=== PATIENT | female | born 1935 | race Caucasian/White ===

== ENCOUNTER → 2017-05-17 | Outpatient (CLI) | payer MEDICARE, OTHER ==
[2015-01-09 11:25] VITALS: BP 106/60
[~2017-05-17] MED LIST: GOOD SENSE ASPI81 M1 PO; LINZESS145 MCG PO; NITROGLYCERIN0.4 M1 SL; NITROSTAT0.4 MG SL; NORCO 325 MG-51 TAB PO; OXYBUTYNIN5 MG PO; VALIUM2 MG PO
[2017-05-17 15:27] LABS: ALBUMIN 3.8 g/dL (3.5-5.0); BUN/CREATININE RATIO 20.3 (6.0-26.0); CALCIUM 9.2 mg/dL (8.4-10.2); POTASSIUM 3.8 mmol/L (3.6-5.0); TOTAL BILIRUBIN 0.5 mg/dL (0.2-1.3); TOTAL PROTEIN 6.6 g/dL (6.3-8.2)
[2017-05-17 16:08] LABS: EOS # 0.2 (0.04-0.40); EOS % 3.7 % (1.0-5.0); HEMATOCRIT 44.1 % (37.0-47.0); HEMOGLOBIN 14.4 g/dL (12.5-16.0); LYMPH# 1.1 (1.50-4.00); MEAN CELL VOLUME 84 fl (78-100); MEAN CORPUSCULAR HEMOGLOBIN 28 pg (27-31); MEAN CORPUSCULAR HGB CONC 33 g/dL (33-37); MEAN PLATELET VOLUME 10.9 fl (7.4-10.4); MONO # 0.4 (0.20-0.80); NEU # 2.4 (1.40-6.50); PLATELET COUNT 241 K/mm3 (130-400); RED BLOOD COUNT 5.23 M/mm3 (4.10-5.30); WHITE BLOOD COUNT 4.1 K/mm3 (4.8-10.8)
[2017-05-17 17:17] LABS: ERYTHROCYTE SEDIMENTATION RATE 2 mm/hr (0-30)
[2017-05-17 22:19] LABS: C-REACTIVE PROTEIN XXX
[2017-05-19 02:38] LABS: ANA SCREEN with REFLEX Negative (Negative)
== END ==
LOC: LAB 14:16
PROVIDERS: Nurse Practitioner Family
DX: M79.606 Pain in leg, unspecified (principal); M79.1 Myalgia; R41.3 Other amnesia; L82.1 Other seborrheic keratosis; F41.1 Generalized anxiety disorder; F51.01 Primary insomnia

== ENCOUNTER → 2017-11-12 | Outpatient (CLI) | payer MEDICARE, OTHER ==
[~2017-11-12] VITALS: Ht 167.6 cm; Wt 61.4 kg
[~2017-11-12] MED LIST changes: +BACTRIM DS TAB1 EACH PO
[2017-11-12 11:00] VITALS: BP 136/60
== END ==
LOC: AMSURD 10:50
DX: R07.9 Chest pain, unspecified (principal)

== ENCOUNTER 2017-11-14 09:12 | Emergency (ER) | payer MEDICARE, OTHER ==
[~2017-11-14] VITALS: Ht 167.6 cm; Wt 55.5 kg
[~2017-11-14 09:12] MED LIST changes: -BACTRIM DS TAB1 EACH PO
[2017-11-14 09:46] LABS: HEMATOCRIT 42.5 % (37.0-47.0); HEMOGLOBIN 14.4 g/dL (12.5-16.0); MEAN CELL VOLUME 81 fl (78-100); MEAN CORPUSCULAR HEMOGLOBIN 27 pg (27-31); MEAN CORPUSCULAR HGB CONC 34 g/dL (33-37); MEAN PLATELET VOLUME 10.8 fl (7.4-10.4); PLATELET COUNT 118 K/mm3 (130-400); RED BLOOD COUNT 5.28 M/mm3 (4.10-5.30); RED CELL DISTRIBUTION WIDTH 14.9 % (11.5-14.5); WHITE BLOOD COUNT 2.3 K/mm3 (4.8-10.8)
[2017-11-14 10:02] LABS: ALBUMIN 3.5 g/dL (3.5-5.0); BUN/CREATININE RATIO 17.1 (6.0-26.0); CALCIUM 8.5 mg/dL (8.4-10.2); POTASSIUM 3.5 mmol/L (3.6-5.0); TOTAL BILIRUBIN 1.1 mg/dL (0.2-1.3); TOTAL PROTEIN 6.4 g/dL (6.3-8.2)
[2017-11-14 10:03] LABS: D-DIMER 2.79 mg/L FEU (0.15-0.50)
[2017-11-14 10:15] LABS: CKMB ISOENZYME 2.2 ng/mL (0.6-3.5)
[2017-11-14 10:20] LABS: TROPONIN-I < 0.03 ng/mL (0.00-0.06)
[2017-11-14 10:33] LABS: BAND 10 % (0-10); LYMPHOCYTE 17 % (20-51); MONOCYTE 14 % (3-10); NEUTROPHILS 57 % (42-75)
[2017-11-14 10:34] LABS: PH-URINE 5.5 (5.0 - 8.0); URINE APPEARANCE CLOUDY; URINE BILIRUBIN NEGATIVE (NEGATIVE); URINE BLOOD TRACE (NEGATIVE); URINE COLOR YELLOW; URINE GLUCOSE NEGATIVE (NEGATIVE); URINE KETONE 1+ (NEGATIVE); URINE LEUKOCYTE ESTERASE 1+ (NEGATIVE); URINE NITRATE NEGATIVE (NEGATIVE); URINE PROTEIN(semi-quant) 1+ mg/dL (NEGATIVE); URINE UROBILINOGEN NORMAL (NORMAL)
[2017-11-14 10:35] LABS: URINE MUCUS PRESENT (NOT PRESENT)
[2017-11-14] MEDS ORDERED: BACTRIM DS TAB1 EACH PO (12:16)
[2017-11-14 12:30] VITALS: BP 142/64
== END 2017-11-14 12:26 | disposition home or self-care (01) ==
LOC: ED 09:12
PROVIDERS: Nurse Practitioner Primary Care
DX: E86.0 Dehydration (principal); A08.4 Viral intestinal infection, unspecified; N39.0 Urinary tract infection, site not specified; Z95.5 Presence of coronary angioplasty implant and graft; F17.200 Nicotine dependence, unspecified, uncomplicated
CPT/HCPCS: J7030; Q9967

== ENCOUNTER 2017-11-16 16:58 | Observation (INO) | payer MEDICARE, OTHER ==
[~2017-11-16] VITALS: Ht 167.6 cm; Wt 56.0 kg
[~2017-11-16 16:58] MED LIST changes: +BACTRIM DS TAB1 EACH PO
[2017-11-16] MEDS ORDERED: CELECOXIB100 M1 PO (17:12)
[2017-11-16 18:05] LABS: BUN/CREATININE RATIO 14.5 (6.0-26.0); CALCIUM 7.7 mg/dL (8.4-10.2); POTASSIUM 3.3 mmol/L (3.6-5.0); TOTAL BILIRUBIN 0.6 mg/dL (0.2-1.3); TOTAL PROTEIN 5.6 g/dL (6.3-8.2)
[2017-11-16 18:07] LABS: EOS % 0.3 % (1.0-5.0); HEMATOCRIT 35.9 % (37.0-47.0); HEMOGLOBIN 12.3 g/dL (12.5-16.0); MEAN CELL VOLUME 80 fl (78-100); MEAN CORPUSCULAR HEMOGLOBIN 27 pg (27-31); MEAN CORPUSCULAR HGB CONC 34 g/dL (33-37); MEAN PLATELET VOLUME 11.3 fl (7.4-10.4); MONO # 0.3 (0.20-0.80); NEU # 2.2 (1.40-6.50); PLATELET COUNT 104 K/mm3 (130-400); RED BLOOD COUNT 4.51 M/mm3 (4.10-5.30); WHITE BLOOD COUNT 3.2 K/mm3 (4.8-10.8)
[2017-11-16 18:08] LABS: CKMB ISOENZYME 0.9 ng/mL (0.6-3.5)
[2017-11-16 18:14] LABS: TROPONIN-I < 0.03 ng/mL (0.00-0.06)
[2017-11-16 18:19] LABS: LYMPH# 0.6 (1.50-4.00)
[2017-11-16 19:45] LABS: PH-URINE 5.5 (5.0 - 8.0); URINE APPEARANCE CLEAR; URINE BILIRUBIN NEGATIVE (NEGATIVE); URINE COLOR YELLOW; URINE GLUCOSE NEGATIVE (NEGATIVE); URINE KETONE 1+ (NEGATIVE); URINE PROTEIN(semi-quant) TRACE mg/dL (NEGATIVE); URINE UROBILINOGEN NORMAL (NORMAL)
[2017-11-16 19:46] LABS: URINE BLOOD TRACE (NEGATIVE); URINE LEUKOCYTE ESTERASE NEGATIVE (NEGATIVE); URINE NITRATE NEGATIVE (NEGATIVE)
--- NOTE | 2017-11-16 19:48 | NUR ---
Admitted from ER to room 204 for observation. Pt ambulated to room, gait steady and a/o x 3. Oriented to room by Sai LAUREN. Bed alarm set and call light with in reach of pt.
--- NOTE | 2017-11-16 20:00 | NUR ---
Pt awake, a/o x 3, resting in bed and visiting with on mobile phone. Denies having any needs or concerns at this time.
[2017-11-16 20:06] VITALS: BP 100/35
[2017-11-16 20:46] VITALS: BP 100/35
[2017-11-16 23:00] VITALS: BP 107/42
--- NOTE | 2017-11-16 23:00 | NUR ---
2049 Pt resting in bed, eyes closed and even respirations. Opens eyes when spoken too. Oriented pt to room and call light. Informed pt that bed and chair alarms will be set when she is in them. Pt agreed. Instructed to use call light when needing to get up out of bed, pt agreed. 2099 Int started in right wrist, 20 gauge IV catheter. 2111 IV fluids of NS started via pump to infuse at 100mls/hr. Pt continues to deny nausea. Denies having any diarrhea since admission. Denies SOB, chest pain. States she has over all body aches. Ambulated to the bathroom with one stand by assist. Gait steady. Reminded pt to use call light when needing to get up out of bed. Pt agreed. [id number] Pt pleasant and willing to talk. Pt informed me that it has been stressful at home for her and herself. They are in the process of adopting their great grandchildren. Their daughter when she was 42 of breast cancer and that her grand daughter has had a long history of drug abuse and history of being turned into child protective services for her two great grand children. The children have been living with them since last December and now her and herself are in the process of adopting their great grand children. She states she has been under a great deal of stress, loosing weight from lack of time to eat. Difficulty sleeping going to bed late and waking around 0300 up until approx 2 weeks ago when she started feeling well. Then she started to go to bed early "like around 7 O'clock" and sleeping for 8 hours or more. I spoke with pt for approx a hour. Visiting from current family issues to past hx. 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 She stated her first was in the [place] and the family did a lot of travel abroad travel and living out side the [place] during his time in the . Living in [place] to [place]. They had a daughter and son together. Her first . She meant her current when she was 42 and he was 28. He is 12 years younger than her. She did speak briefly of knee issues, he is needing surgery but has been holding off on it. She denied having any financial concerns or needs. She denied having any safety concern at home with her or great grand children. Denies having any safety concerns regarding her grand daughter, who now lives in [place]. Denies having any current home health care needs. Pt stated she appreciated being able to talk with me and it was helpful just to be able to talk about her current family situation. 2300 Currently resting in bed, bed alarm set. Call light with in reach of pt. IV infusing at 100mls/hr.
--- NOTE | 2017-11-17 01:20 | NUR ---
Bed alarm sounded, pt found ambulated to bathroom. Pt reminded to use call light. Pt stated she just woke up and had to pee.
[2017-11-17] MEDS ORDERED: TUMS REGULAR S500 MG PO (01:44)
[2017-11-17 03:15] VITALS: BP 98/53
--- NOTE | 2017-11-17 03:20 | NUR ---
Pt given tylenol for temp for oral temp of 102.8. Pt denied nausea. Has denied having any dirrhea.
[2017-11-17 06:39] VITALS: BP 87/41
[2017-11-17 07:07] LABS: HEMATOCRIT 36.2 % (37.0-47.0); HEMOGLOBIN 12.3 g/dL (12.5-16.0); MEAN CELL VOLUME 80 fl (78-100); MEAN CORPUSCULAR HEMOGLOBIN 27 pg (27-31); MEAN CORPUSCULAR HGB CONC 34 g/dL (33-37); MEAN PLATELET VOLUME 11.4 fl (7.4-10.4); PLATELET COUNT 98 K/mm3 (130-400); RED BLOOD COUNT 4.51 M/mm3 (4.10-5.30); WHITE BLOOD COUNT 3.1 K/mm3 (4.8-10.8)
[2017-11-17 07:19] LABS: BUN/CREATININE RATIO 13.3 (6.0-26.0); CALCIUM 7.6 mg/dL (8.4-10.2); POTASSIUM 3.4 mmol/L (3.6-5.0)
--- NOTE | 2017-11-17 07:28 | NUR ---
Shift report given to Lena Herr RN
--- NOTE | 2017-11-17 08:05 | NUR ---
Increased fluid to infuse a 500ml bolus per VO Sergio Barlow APRN.
--- NOTE | 2017-11-17 08:47 | NUR ---
Pt denies c/o chest pain or SOB. States that those symptoms have subsided from previous reports when seen in the clinic and ER. Pt reports having chills this AM and had soaked gown with sweat prior to getting up this AM. Rechecked oral temp, WNL. Explained to pt add'l lab draws and starting IV abx. Pt acknowledges understanding and is agreeable to this.
--- NOTE | 2017-11-17 09:08 | NUR ---
EKG complete, RSR noted. Notified provider.
[2017-11-17 09:41] LABS: BAND 13 % (0-10); LYMPHOCYTE 14 % (20-51); MONOCYTE 5 % (3-10); NEUTROPHILS 68 % (42-75)
[2017-11-17 09:42] LABS: OVALOCYTES 1+
[2017-11-17 10:31] VITALS: BP 89/50
--- NOTE | 2017-11-17 11:07 | NUR ---
Pt has been transferred to acute care.
[2017-11-17 11:27] VITALS: BP 116/66
[2017-11-18 02:30] LABS: C-REACTIVE PROTEIN XXX
[2017-11-18 10:18] LABS: TICK - ROCKY MT SPOT FEVER AB <1:16 (<1:16)
== END 2017-11-17 11:07 | disposition other institution (70) ==
LOC: ED 16:58 → MED/SURG 19:48
PROVIDERS: Nurse Practitioner Family; ADMIT Physician Assistant
DX: D70.9 Neutropenia, unspecified (principal); R50.81 Fever presenting with conditions classified elsewhere; E86.0 Dehydration; E87.1 Hypo-osmolality and hyponatremia; E87.6 Hypokalemia; R53.81 Other malaise; K52.9 Noninfective gastroenteritis and colitis, unspecified; R53.83 Other fatigue; Z20.7 Contact with and (suspected) exposure to pediculosis, acariasis and other infestations; R53.1 Weakness; R59.0 Localized enlarged lymph nodes; D61.818 Other pancytopenia; R82.4 Acetonuria; F41.9 Anxiety disorder, unspecified; F32.9 Major depressive disorder, single episode, unspecified; Z87.891 Personal history of nicotine dependence; Z79.899 Other long term (current) drug therapy; R91.8 Other nonspecific abnormal finding of lung field
CPT/HCPCS: G0378; J0696; J3480; J7030; J7050

== ENCOUNTER 2017-11-17 11:07 | Inpatient (IN) | payer MEDICARE, OTHER ==
[~2017-11-17] VITALS: Ht 167.6 cm; Wt 56.1 kg
[2017-11-17 11:07] VITALS: BP 116/66
[~2017-11-17 11:07] MED LIST changes: +CELECOXIB100 M1 PO; +TUMS REGULAR S500 MG PO
[2017-11-17 12:24] VITALS: BP 116/66
[2017-11-17 15:15] VITALS: BP 123/63
[2017-11-17 18:17] VITALS: BP 125/55
[2017-11-17 23:00] VITALS: BP 100/53
[2017-11-18] VITALS (7 sets, daily range): BP systolic 102–152; BP diastolic 47–75
[2017-11-18 06:04] LABS: HEMATOCRIT 35.7 % (37.0-47.0); HEMOGLOBIN 11.9 g/dL (12.5-16.0); MEAN CELL VOLUME 81 fl (78-100); MEAN CORPUSCULAR HEMOGLOBIN 27 pg (27-31); MEAN CORPUSCULAR HGB CONC 33 g/dL (33-37); MEAN PLATELET VOLUME 10.7 fl (7.4-10.4); PLATELET COUNT 99 K/mm3 (130-400); RED BLOOD COUNT 4.39 M/mm3 (4.10-5.30); RED CELL DISTRIBUTION WIDTH 15.5 % (11.5-14.5); WHITE BLOOD COUNT 3.8 K/mm3 (4.8-10.8)
[2017-11-18 06:45] LABS: BUN/CREATININE RATIO 10.2 (6.0-26.0); CALCIUM 7.3 mg/dL (8.4-10.2); POTASSIUM 3.8 mmol/L (3.6-5.0)
[2017-11-18 07:30] LABS: BAND 7 % (0-10); LYMPHOCYTE 22 % (20-51); MONOCYTE 9 % (3-10); NEUTROPHILS 62 % (42-75); OVALOCYTES 1+
[2017-11-19 02:52] VITALS: BP 135/63
[2017-11-19 06:21] VITALS: BP 156/67
[2017-11-19 07:13] LABS: HEMATOCRIT 38.9 % (37.0-47.0); HEMOGLOBIN 13.2 g/dL (12.5-16.0); MEAN CELL VOLUME 81 fl (78-100); MEAN CORPUSCULAR HEMOGLOBIN 28 pg (27-31); MEAN CORPUSCULAR HGB CONC 34 g/dL (33-37); MEAN PLATELET VOLUME 11.4 fl (7.4-10.4); PLATELET COUNT 141 K/mm3 (130-400); RED BLOOD COUNT 4.79 M/mm3 (4.10-5.30); RED CELL DISTRIBUTION WIDTH 16.1 % (11.5-14.5); WHITE BLOOD COUNT 6.7 K/mm3 (4.8-10.8)
[2017-11-19 07:24] LABS: BUN/CREATININE RATIO 8.8 (6.0-26.0); CALCIUM 7.7 mg/dL (8.4-10.2); POTASSIUM 3.8 mmol/L (3.6-5.0)
[2017-11-19 08:44] LABS: NEUTROPHILS 37 % (42-75)
[2017-11-19 08:45] LABS: LYMPHOCYTE 56 % (20-51); MONOCYTE 6 % (3-10)
[2017-11-19 11:07] VITALS: BP 114/55
[2017-11-19 15:08] VITALS: BP 137/68
[2017-11-19 18:08] VITALS: BP 124/54
[2017-11-19 23:35] VITALS: BP 149/73
[2017-11-20 03:12] VITALS: BP 152/65
[2017-11-20 06:41] VITALS: BP 119/58
[2017-11-20 11:09] VITALS: BP 114/63
[2017-11-20 15:22] VITALS: BP 127/65
[2017-11-20 18:42] VITALS: BP 146/60
[2017-11-20 22:56] VITALS: BP 169/79
[2017-11-21 03:12] VITALS: BP 157/74
[2017-11-21 06:19] VITALS: BP 159/70
[2017-11-21] MEDS ORDERED: CEFDINIR300 MG PO (09:33)
[2017-11-21] MEDS ORDERED: DOXYCYCLINE MO100 M3 PO (09:33)
[2017-11-21] MEDS ORDERED: Patient's Own Medica PO (09:33)
[2017-11-21] MEDS ORDERED: VALIUM 2MG T2 MG/TAB PO (09:33)
== END 2017-11-21 10:47 | disposition home or self-care (01) | DRG 809 ==
LOC: MED/SURG 11:07
PROVIDERS: Nurse Practitioner Family; ADMIT Physician Assistant
DX: D61.818 Other pancytopenia (principal); A93.8 Other specified arthropod-borne viral fevers; E87.1 Hypo-osmolality and hyponatremia; R50.81 Fever presenting with conditions classified elsewhere; E87.6 Hypokalemia
CPT/HCPCS: J0696; J3480; J7050

== ENCOUNTER → 2017-11-28 | Outpatient (CLI) | payer MEDICARE, OTHER ==
[2017-11-21 06:19] VITALS: BP 159/70
[~2017-11-28] MED LIST changes: +CEFDINIR300 MG PO; +DOXYCYCLINE MO100 M3 PO; +Patient's Own Medica PO; +VALIUM 2MG T2 MG/TAB PO
[2017-11-28 09:48] LABS: HEMATOCRIT 43.8 % (37.0-47.0); HEMOGLOBIN 14.1 g/dL (12.5-16.0); MEAN PLATELET VOLUME 9.2 fl (7.4-10.4); RED BLOOD COUNT 5.23 M/mm3 (4.10-5.30); WHITE BLOOD COUNT 8.3 K/mm3 (4.8-10.8)
[2017-11-28 10:06] LABS: BUN/CREATININE RATIO 15.3 (6.0-26.0); CALCIUM 8.9 mg/dL (8.4-10.2); POTASSIUM 3.9 mmol/L (3.6-5.0)
== END ==
LOC: LAB 09:28
PROVIDERS: Nurse Practitioner Family
DX: D70.9 Neutropenia, unspecified (principal); E87.6 Hypokalemia; E87.1 Hypo-osmolality and hyponatremia

== ENCOUNTER → 2018-01-17 | Outpatient (CLI) | payer MEDICARE, OTHER ==
[2018-01-17 11:07] LABS: BASO # 0.1 (0.02-0.10); EOS # 0.1 (0.04-0.40); HEMATOCRIT 45.6 % (37.0-47.0); HEMOGLOBIN 14.9 g/dL (12.5-16.0); LYMPH# 2.2 (1.50-4.00); MEAN CELL VOLUME 84 fl (78-100); MEAN CORPUSCULAR HEMOGLOBIN 28 pg (27-31); MEAN CORPUSCULAR HGB CONC 33 g/dL (33-37); MEAN PLATELET VOLUME 10.1 fl (7.4-10.4); MONO # 0.5 (0.20-0.80); NEU # 3.3 (1.40-6.50); PLATELET COUNT 278 K/mm3 (130-400); RED CELL DISTRIBUTION WIDTH 15.1 % (11.5-14.5); WHITE BLOOD COUNT 6.1 K/mm3 (4.8-10.8)
[2018-01-17 11:15] LABS: ALBUMIN 4.3 g/dL (3.5-5.0); CALCIUM 9.5 mg/dL (8.4-10.2); POTASSIUM 3.7 mmol/L (3.6-5.0); TOTAL PROTEIN 7.2 g/dL (6.3-8.2)
[2018-01-17 11:31] LABS: URINE APPEARANCE CLEAR; URINE BILIRUBIN NEGATIVE (NEGATIVE); URINE BLOOD NEGATIVE (NEGATIVE); URINE COLOR YELLOW; URINE GLUCOSE NEGATIVE (NEGATIVE); URINE KETONE NEGATIVE (NEGATIVE); URINE LEUKOCYTE ESTERASE NEGATIVE (NEGATIVE); URINE NITRATE NEGATIVE (NEGATIVE); URINE PROTEIN(semi-quant) TRACE mg/dL (NEGATIVE); URINE UROBILINOGEN NORMAL (NORMAL); URINE WBC 0-1 /hpf (0-3)
[2018-01-22 10:53] LABS: LYME DISEASE PCR BLOOD AMS
== END ==
LOC: LAB 10:35
PROVIDERS: Family Medicine
DX: R50.9 Fever, unspecified (principal); R10.9 Unspecified abdominal pain; R73.9 Hyperglycemia, unspecified; R53.83 Other fatigue; E55.9 Vitamin D deficiency, unspecified; R07.9 Chest pain, unspecified

== ENCOUNTER → 2018-01-19 | Outpatient (CLI) | payer MEDICARE, OTHER | LOC: RAD 16:45 → VAS 16:45 | DX: I35.1 Nonrheumatic aortic (valve) insufficiency (principal); I51.89 Other ill-defined heart diseases; R50.9 Fever, unspecified ==

== ENCOUNTER → 2018-08-16 | Outpatient (CLI) | payer MEDICARE, OTHER ==
[2018-08-16 10:00] LABS: EOS # 0.1 (0.04-0.40); EOS % 1.8 % (1.0-5.0); HEMOGLOBIN 14.8 g/dL (12.5-16.0); LYMPH# 1.6 (1.50-4.00); MEAN CELL VOLUME 85 fl (78-100); MEAN CORPUSCULAR HEMOGLOBIN 27 pg (27-31); MEAN CORPUSCULAR HGB CONC 32 g/dL (33-37); MEAN PLATELET VOLUME 10.1 fl (7.4-10.4); MONO # 0.4 (0.20-0.80); NEU # 3.9 (1.40-6.50); PLATELET COUNT 255 K/mm3 (130-400); RED BLOOD COUNT 5.43 M/mm3 (4.10-5.30); RED CELL DISTRIBUTION WIDTH 14.5 % (11.5-14.5)
[2018-08-16 10:34] LABS: ALBUMIN 4.4 g/dL (3.5-5.0); CALCIUM 9.6 mg/dL (8.4-10.2); POTASSIUM 4.1 mmol/L (3.6-5.0); TOTAL BILIRUBIN 0.7 mg/dL (0.2-1.3); TOTAL PROTEIN 7.4 g/dL (6.3-8.2)
[2018-08-16 11:14] LABS: ERYTHROCYTE SEDIMENTATION RATE 2 mm/hr (0-30)
[2018-08-17 11:23] LABS: C-REACTIVE PROTEIN XXX
[2018-08-18 01:09] LABS: ANA SCREEN with REFLEX Positive (Negative)
== END ==
LOC: LAB 09:37
PROVIDERS: Family Medicine
DX: M19.90 Unspecified osteoarthritis, unspecified site (principal); I25.10 Atherosclerotic heart disease of native coronary artery without angina pectoris; D89.89 Other specified disorders involving the immune mechanism, not elsewhere classified

== ENCOUNTER 2018-08-24 11:17 | Emergency (ER) | payer MEDICARE, OTHER ==
[2018-08-24 11:24] VITALS: BP 166/86
[2018-08-24] MEDS ORDERED: MELOXICAM15 MG PO (11:36)
[2018-08-24] MEDS ORDERED: DITROPAN 5MG TAB5 MG PO (11:36)
[2018-08-24 12:23] LABS: EOS # 0.1 (0.04-0.40); EOS % 2.6 % (1.0-5.0); HEMATOCRIT 45.5 % (37.0-47.0); HEMOGLOBIN 14.7 g/dL (12.5-16.0); LYMPH# 1.6 (1.50-4.00); MEAN CELL VOLUME 85 fl (78-100); MEAN CORPUSCULAR HEMOGLOBIN 27 pg (27-31); MEAN CORPUSCULAR HGB CONC 32 g/dL (33-37); MEAN PLATELET VOLUME 10.1 fl (7.4-10.4); MONO # 0.4 (0.20-0.80); NEU # 3.2 (1.40-6.50); PLATELET COUNT 235 K/mm3 (130-400); RED BLOOD COUNT 5.37 M/mm3 (4.10-5.30); RED CELL DISTRIBUTION WIDTH 14.2 % (11.5-14.5); WHITE BLOOD COUNT 5.4 K/mm3 (4.8-10.8)
[2018-08-24 12:44] LABS: ALBUMIN 4.5 g/dL (3.5-5.0); CALCIUM 9.6 mg/dL (8.4-10.2); POTASSIUM 3.7 mmol/L (3.6-5.0); TOTAL BILIRUBIN 0.8 mg/dL (0.2-1.3); TOTAL PROTEIN 7.5 g/dL (6.3-8.2)
[2018-08-24 12:46] LABS: PH-URINE 7.5 (5.0 - 8.0); URINE APPEARANCE CLEAR; URINE BILIRUBIN NEGATIVE (NEGATIVE); URINE BLOOD NEGATIVE (NEGATIVE); URINE COLOR YELLOW; URINE GLUCOSE NEGATIVE (NEGATIVE); URINE KETONE NEGATIVE (NEGATIVE); URINE LEUKOCYTE ESTERASE NEGATIVE (NEGATIVE); URINE NITRATE NEGATIVE (NEGATIVE); URINE PROTEIN(semi-quant) NEGATIVE (NEGATIVE); URINE UROBILINOGEN NORMAL (NORMAL); URINE WBC 0-1 /hpf (0-3)
== END 2018-08-24 14:02 | disposition home or self-care (01) ==
LOC: ED 11:17
PROVIDERS: Nurse Practitioner Primary Care
DX: R41.0 Disorientation, unspecified (principal); T39.395A Adverse effect of other nonsteroidal anti-inflammatory drugs [NSAID], initial encounter; R53.1 Weakness; K21.9 Gastro-esophageal reflux disease without esophagitis; Z90.49 Acquired absence of other specified parts of digestive tract; Z98.890 Other specified postprocedural states

== ENCOUNTER → 2019-03-29 | Outpatient (CLI) | payer MEDICARE, OTHER ==
[2019-01-24 06:15] VITALS: BP 167/70
[~2019-03-29] MED LIST changes: +ASPIRIN ADULT L81 M3 PO; +ATORVASTATIN CA20 MG PO; +BENADRYL PO; +DITROPAN XL 5MG5 M1 PO; +FLONASE ALLERG9.9 ML NS; +GOOD NEIGH1200 MG/15 PO; +MELOXICAM15 MG PO; +NITROSTAT0.4 M1 SL; +PLAQUENIL 200M200 MG PO; +PREDNISONE10 MG PO; +TRIAMCINOLONE AC0.13 TP
== END ==
LOC: LAB 12:38
DX: R51 Headache (principal)

== ENCOUNTER 2019-05-01 08:22 | Emergency (ER) | payer MEDICARE, OTHER ==
[~2019-05-01] VITALS: Wt 59.8 kg
[2019-05-01 09:16] LABS: HEMATOCRIT 44.8 % (37.0-47.0); HEMOGLOBIN 14.6 g/dL (12.5-16.0); MEAN PLATELET VOLUME 10.7 fl (7.4-10.4); POTASSIUM 3.5 mmol/L (3.5-5.1); RED BLOOD COUNT 5.2 M/mm3 (4.10-5.30); SODIUM 144 mmol/L (136-145)
[2019-05-01 09:17] LABS: CALCIUM 9.6 mg/dL (8.3-10.5)
[2019-05-01 09:18] LABS: GLUCOSE 114 mg/dL (65-105); TOTAL PROTEIN 6.5 g/dL (6.2-8.1)
[2019-05-01 09:19] LABS: CARBON DIOXIDE 25 mmol/L (23-31)
[2019-05-01 09:20] LABS: TOTAL BILIRUBIN 0.7 mg/dL (0.2-1.2)
[2019-05-01 09:24] LABS: AST-SGOT 25 U/L (5-34)
[2019-05-01 09:25] LABS: ALT/SGPT 30 U/L (0-55)
[2019-05-01 09:33] LABS: TROPONIN-I < 0.03 ng/mL (<0.030)
[2019-05-01 11:28] LABS: URINE APPEARANCE CLEAR; URINE COLOR YELLOW
[2019-05-01 11:29] LABS: URINE BILIRUBIN NEGATIVE (NEGATIVE); URINE BLOOD NEGATIVE (NEGATIVE); URINE GLUCOSE NEGATIVE (NEGATIVE); URINE KETONE NEGATIVE (NEGATIVE); URINE LEUKOCYTE ESTERASE NEGATIVE (NEGATIVE); URINE NITRATE NEGATIVE (NEGATIVE); URINE PROTEIN(semi-quant) TRACE mg/dL (NEGATIVE); URINE UROBILINOGEN NORMAL (NORMAL); URINE WBC 0-1 /hpf (0-3)
[2019-05-01 11:32] VITALS: BP 144/84
[2019-05-01] MEDS ORDERED: PLAQUENIL 200M200 MG PO (14:11)
[2019-05-01] MEDS ORDERED: LIPITOR20 M2 PO (14:11)
== END 2019-05-01 11:11 | disposition other institution (70) ==
LOC: ED 08:22
PROVIDERS: Nurse Practitioner Family
DX: K56.609 Unspecified intestinal obstruction, unspecified as to partial versus complete obstruction (principal)
CPT/HCPCS: J2270; J2405; J7030; Q9967

== ENCOUNTER 2019-05-01 11:11 | Inpatient (IN) | payer MEDICARE, OTHER ==
[~2019-05-01] VITALS: Ht 165.1 cm; Wt 58.2 kg
[2019-05-01 11:20] VITALS: BP 144/84
[2019-05-01 12:05] VITALS: BP 144/84
[2019-05-01] MEDS ORDERED: LIPITOR20 M2 PO (14:11)
[2019-05-01] MEDS ORDERED: PLAQUENIL 200M200 MG PO (14:11)
[2019-05-01 15:20] VITALS: BP 162/68
[2019-05-01 16:49] VITALS: BP 162/68
[2019-05-01 17:16] VITALS: BP 165/80
[2019-05-01 22:00] VITALS: BP 165/71
[2019-05-02 02:56] VITALS: BP 156/75
[2019-05-02 06:22] VITALS: BP 178/69
[2019-05-02 08:34] LABS: EOS # 0.2 (0.04-0.40); EOS % 3.2 % (1.0-5.0); HEMATOCRIT 45.4 % (37.0-47.0); HEMOGLOBIN 14.8 g/dL (12.5-16.0); MEAN CELL VOLUME 87 fl (78-100); MEAN CORPUSCULAR HEMOGLOBIN 28 pg (27-31); MEAN CORPUSCULAR HGB CONC 33 g/dL (33-37); MEAN PLATELET VOLUME 10.4 fl (7.4-10.4); MONO # 0.4 (0.20-0.80); NEU # 4.2 (1.40-6.50); PLATELET COUNT 221 K/mm3 (130-400); RED BLOOD COUNT 5.24 M/mm3 (4.10-5.30); WHITE BLOOD COUNT 5.9 K/mm3 (4.8-10.8)
[2019-05-02 10:09] VITALS: BP 184/78
[2019-05-02 14:18] VITALS: BP 173/86
[2019-05-02 18:55] VITALS: BP 184/78
[2019-05-02 22:21] VITALS: BP 157/65
[2019-05-03 02:03] VITALS: BP 165/72
[2019-05-03 05:53] VITALS: BP 173/69
[2019-05-03 07:32] LABS: EOS # 0.2 (0.04-0.40); HEMATOCRIT 42.9 % (37.0-47.0); HEMOGLOBIN 14.1 g/dL (12.5-16.0); LYMPH# 1.1 (1.50-4.00); MEAN CELL VOLUME 85 fl (78-100); MEAN CORPUSCULAR HEMOGLOBIN 28 pg (27-31); MEAN CORPUSCULAR HGB CONC 33 g/dL (33-37); MEAN PLATELET VOLUME 10.1 fl (7.4-10.4); MONO # 0.6 (0.20-0.80); NEU # 4.6 (1.40-6.50); PLATELET COUNT 236 K/mm3 (130-400); RED BLOOD COUNT 5.06 M/mm3 (4.10-5.30); WHITE BLOOD COUNT 6.6 K/mm3 (4.8-10.8)
[2019-05-03 07:46] LABS: POTASSIUM 3.3 mmol/L (3.5-5.1)
[2019-05-03 07:48] LABS: CALCIUM 8.5 mg/dL (8.3-10.5)
[2019-05-03 07:55] LABS: PH-URINE 6.5 (5.0 - 8.0); URINE APPEARANCE CLEAR; URINE BILIRUBIN NEGATIVE (NEGATIVE); URINE BLOOD TRACE (NEGATIVE); URINE COLOR YELLOW; URINE GLUCOSE NEGATIVE (NEGATIVE); URINE KETONE 1+ (NEGATIVE); URINE LEUKOCYTE ESTERASE NEGATIVE (NEGATIVE); URINE MUCUS PRESENT (NOT PRESENT); URINE NITRATE NEGATIVE (NEGATIVE); URINE PROTEIN(semi-quant) TRACE mg/dL (NEGATIVE); URINE UROBILINOGEN NORMAL (NORMAL); URINE WBC 0-1 /hpf (0-3)
[2019-05-03 09:59] VITALS: BP 161/81
[2019-05-03 14:00] VITALS: BP 155/77
[2019-05-03] MEDS ORDERED: PRINIVIL5 M1 PO (15:30)
[2019-05-03 15:40] VITALS: BP 167/80
== END 2019-05-03 15:45 | disposition home or self-care (01) | DRG 390 ==
LOC: MED/SURG 11:11
PROVIDERS: ADMIT Nurse Practitioner Family
DX: K56.609 Unspecified intestinal obstruction, unspecified as to partial versus complete obstruction (principal); Z88.0 Allergy status to penicillin; Z88.8 Allergy status to other drugs, medicaments and biological substances; Z87.891 Personal history of nicotine dependence; M06.9 Rheumatoid arthritis, unspecified; I10 Essential (primary) hypertension; R51 Headache; R41.0 Disorientation, unspecified
CPT/HCPCS: J1885; J2270; J2765; J7030; J7512

== ENCOUNTER → 2019-07-03 | Outpatient (CLI) | payer MEDICARE, OTHER ==
[2019-06-18 11:57] VITALS: BP 140/66
[~2019-07-03] MED LIST changes: +HYDROCODONE AN473 M1 PO; +LIPITOR20 M2 PO; +PREDNISONE20 M1 PO; +PRINIVIL5 M1 PO
[2019-07-03 11:17] LABS: HEMATOCRIT 44.2 % (37.0-47.0); HEMOGLOBIN 14.1 g/dL (12.5-16.0); MEAN CELL VOLUME 86 fl (78-100); MEAN CORPUSCULAR HEMOGLOBIN 28 pg (27-31); MEAN CORPUSCULAR HGB CONC 32 g/dL (33-37); MEAN PLATELET VOLUME 9.7 fl (7.4-10.4); PLATELET COUNT 322 K/mm3 (130-400); RED BLOOD COUNT 5.12 M/mm3 (4.10-5.30); RED CELL DISTRIBUTION WIDTH 14.9 % (11.5-14.5); WHITE BLOOD COUNT 9.4 K/mm3 (4.8-10.8)
[2019-07-03 11:19] LABS: ALBUMIN 3.9 g/dL (3.4-4.8); POTASSIUM 4.1 mmol/L (3.5-5.1)
[2019-07-03 11:20] LABS: CALCIUM 9.2 mg/dL (8.3-10.5)
[2019-07-03 11:21] LABS: TOTAL PROTEIN 6.5 g/dL (6.2-8.1)
[2019-07-03 11:23] LABS: TOTAL BILIRUBIN 0.7 mg/dL (0.2-1.2)
[2019-07-03 13:06] LABS: LYMPHOCYTE 10 % (20-51); MONOCYTE 3 % (3-10); NEUTROPHILS 87 % (42-75); OVALOCYTES 1+
== END ==
LOC: LAB 10:40
DX: K56.41 Fecal impaction (principal)

== ENCOUNTER → 2019-07-04 | Outpatient (CLI) | payer MEDICARE, OTHER ==
[2019-06-18 11:57] VITALS: BP 140/66
== END ==
LOC: RAD 07:50
DX: K56.41 Fecal impaction (principal); Z90.49 Acquired absence of other specified parts of digestive tract

== ENCOUNTER → 2019-10-11 | Outpatient (CLI) | payer MEDICARE, OTHER ==
[2019-06-18 11:57] VITALS: BP 140/66
[2019-10-11 10:09] LABS: EOS # 0.1 (0.04-0.40); EOS % 1.2 % (1.0-5.0); HEMATOCRIT 44.8 % (37.0-47.0); HEMOGLOBIN 14.9 g/dL (12.5-16.0); LYMPH# 1.5 (1.50-4.00); MEAN CELL VOLUME 85 fl (78-100); MEAN CORPUSCULAR HEMOGLOBIN 28 pg (27-31); MEAN CORPUSCULAR HGB CONC 33 g/dL (33-37); MONO # 0.8 (0.20-0.80); NEU # 6.8 (1.40-6.50); PLATELET COUNT 323 K/mm3 (130-400); RED BLOOD COUNT 5.28 M/mm3 (4.10-5.30); RED CELL DISTRIBUTION WIDTH 14.4 % (11.5-14.5); WHITE BLOOD COUNT 9.3 K/mm3 (4.8-10.8)
[2019-10-11 10:13] LABS: ALBUMIN 4.3 g/dL (3.4-4.8)
[2019-10-11 10:14] LABS: POTASSIUM 4.5 mmol/L (3.5-5.1); SODIUM 137 mmol/L (136-145)
[2019-10-11 10:15] LABS: CALCIUM 9.3 mg/dL (8.3-10.5)
[2019-10-11 10:16] LABS: GLUCOSE 113 mg/dL (65-105); TOTAL PROTEIN 6.8 g/dL (6.2-8.1)
[2019-10-11 10:17] LABS: CARBON DIOXIDE 27 mmol/L (23-31)
[2019-10-11 10:18] LABS: TOTAL BILIRUBIN 0.9 mg/dL (0.2-1.2)
[2019-10-11 10:21] LABS: AST-SGOT 28 U/L (5-34)
[2019-10-11 10:23] LABS: ALT/SGPT 33 U/L (0-55)
[2019-10-11 12:44] LABS: URINE APPEARANCE HAZY; URINE BILIRUBIN NEGATIVE (NEGATIVE); URINE BLOOD TRACE (NEGATIVE); URINE COLOR YELLOW; URINE GLUCOSE NEGATIVE (NEGATIVE); URINE KETONE NEGATIVE (NEGATIVE); URINE LEUKOCYTE ESTERASE TRACE (NEGATIVE); URINE NITRATE NEGATIVE (NEGATIVE); URINE PROTEIN(semi-quant) NEGATIVE (NEGATIVE); URINE UROBILINOGEN NORMAL (NORMAL)
== END ==
LOC: LAB 09:32
PROVIDERS: Nurse Practitioner
DX: M25.551 Pain in right hip (principal); W19.XXXA Unspecified fall, initial encounter; R10.9 Unspecified abdominal pain

== ENCOUNTER → 2019-10-12 | Outpatient (CLI) | payer MEDICARE, OTHER ==
[2019-06-18 11:57] VITALS: BP 140/66
== END ==
LOC: RAD 14:19
DX: K76.89 Other specified diseases of liver (principal); D73.89 Other diseases of spleen; I70.0 Atherosclerosis of aorta; M48.061 Spinal stenosis, lumbar region without neurogenic claudication; M51.36 Other intervertebral disc degeneration, lumbar region; M47.816 Spondylosis without myelopathy or radiculopathy, lumbar region; M41.86 Other forms of scoliosis, lumbar region; Z90.710 Acquired absence of both cervix and uterus; Z90.49 Acquired absence of other specified parts of digestive tract; K56.41 Fecal impaction; Z98.890 Other specified postprocedural states

== ENCOUNTER → 2019-11-27 | Outpatient (CLI) | payer MEDICARE, OTHER ==
[2019-06-18 11:57] VITALS: BP 140/66
[2019-11-27 09:45] LABS: EOS # 0.2 (0.04-0.40); EOS % 3.5 % (1.0-5.0); HEMATOCRIT 43.4 % (37.0-47.0); HEMOGLOBIN 14.2 g/dL (12.5-16.0); LYMPH# 0.9 (1.50-4.00); MEAN CELL VOLUME 86 fl (78-100); MEAN CORPUSCULAR HEMOGLOBIN 28 pg (27-31); MEAN CORPUSCULAR HGB CONC 33 g/dL (33-37); MEAN PLATELET VOLUME 9.6 fl (7.4-10.4); MONO # 0.7 (0.20-0.80); NEU # 4.2 (1.40-6.50); PLATELET COUNT 268 K/mm3 (130-400); RED BLOOD COUNT 5.05 M/mm3 (4.10-5.30)
[2019-11-27 09:56] LABS: POTASSIUM 4.3 mmol/L (3.5-5.1)
[2019-11-27 09:57] LABS: CALCIUM 8.9 mg/dL (8.3-10.5)
[2019-11-27 09:58] LABS: TOTAL PROTEIN 6.8 g/dL (6.2-8.1); URINE APPEARANCE CLOUDY; URINE COLOR YELLOW
[2019-11-27 09:59] LABS: URINE BILIRUBIN NEGATIVE (NEGATIVE); URINE BLOOD TRACE (NEGATIVE); URINE GLUCOSE NEGATIVE (NEGATIVE); URINE KETONE NEGATIVE (NEGATIVE); URINE LEUKOCYTE ESTERASE 2+ (NEGATIVE); URINE NITRATE POSITIVE (NEGATIVE); URINE PROTEIN(semi-quant) NEGATIVE (NEGATIVE); URINE UROBILINOGEN NORMAL (NORMAL); URINE WBC >50 /hpf (0-3)
[2019-11-27 10:00] LABS: TOTAL BILIRUBIN 0.9 mg/dL (0.2-1.2)
== END ==
LOC: RAD 09:23
PROVIDERS: Family Medicine
DX: R55 Syncope and collapse (principal); R00.2 Palpitations; R31.9 Hematuria, unspecified

== ENCOUNTER → 2020-02-25 | Outpatient (CLI) | payer MEDICARE, OTHER ==
[2019-06-18 11:57] VITALS: BP 140/66
[~2020-02-25] MED LIST changes: +FLAGYL500 M1 PO; +VIBRAMYCIN HYC100 MG PO
[2020-02-25 13:27] LABS: URINE APPEARANCE CLEAR; URINE COLOR YELLOW
[2020-02-25 13:28] LABS: URINE BILIRUBIN NEGATIVE (NEGATIVE); URINE BLOOD NEGATIVE (NEGATIVE); URINE GLUCOSE NEGATIVE (NEGATIVE); URINE KETONE NEGATIVE (NEGATIVE); URINE LEUKOCYTE ESTERASE NEGATIVE (NEGATIVE); URINE MUCUS PRESENT (NOT PRESENT); URINE NITRATE NEGATIVE (NEGATIVE); URINE PROTEIN(semi-quant) NEGATIVE (NEGATIVE); URINE UROBILINOGEN NORMAL (NORMAL)
== END ==
LOC: LAB 13:04
PROVIDERS: Family Medicine
DX: M54.9 Dorsalgia, unspecified (principal); Z87.440 Personal history of urinary (tract) infections

== ENCOUNTER → 2020-03-14 | Outpatient (CLI) | payer MEDICARE, OTHER ==
[2019-06-18 11:57] VITALS: BP 140/66
== END ==
LOC: RAD 11:07
DX: M19.042 Primary osteoarthritis, left hand (principal); S61.459A Open bite of unspecified hand, initial encounter

== ENCOUNTER → 2020-04-28 | Outpatient (CLI) | payer MEDICARE, OTHER ==
[2020-03-19 10:37] VITALS: BP 141/63
== END ==
LOC: RAD 10:32
DX: G31.9 Degenerative disease of nervous system, unspecified (principal)

== ENCOUNTER → 2020-05-15 | Outpatient (CLI) | payer MEDICARE, OTHER ==
[2020-03-19 10:37] VITALS: BP 141/63
== END ==
LOC: LAB 12:30
DX: R50.9 Fever, unspecified (principal); M79.10 Myalgia, unspecified site; R09.89 Other specified symptoms and signs involving the circulatory and respiratory systems; Z20.828 Contact with and (suspected) exposure to other viral communicable diseases

== ENCOUNTER 2020-07-06 13:59 | Emergency (ER) | payer MEDICARE, OTHER ==
[2020-07-06 14:56] LABS: ALBUMIN 4.1 g/dL (3.4-4.8); POTASSIUM 3.8 mmol/L (3.5-5.1); SODIUM 142 mmol/L (136-145)
[2020-07-06 14:57] LABS: CALCIUM 8.9 mg/dL (8.3-10.5)
[2020-07-06 14:58] LABS: GLUCOSE 88 mg/dL (65-105); TOTAL PROTEIN 6.6 g/dL (6.2-8.1)
[2020-07-06 14:59] LABS: CARBON DIOXIDE 25 mmol/L (23-31)
[2020-07-06 15:00] LABS: TOTAL BILIRUBIN 0.5 mg/dL (0.2-1.2)
[2020-07-06 15:04] LABS: AST-SGOT 24 U/L (5-34)
[2020-07-06 15:05] LABS: ALT/SGPT 21 U/L (0-55)
[2020-07-06] MEDS ORDERED: ALPRAZOLAM0.5 MG PO (15:05)
[2020-07-06] MEDS ORDERED: SERTRALINE50 MG PO (15:06)
[2020-07-06 15:23] LABS: EOS # 0.2 (0.04-0.40); EOS % 3.6 % (1.0-5.0); HEMOGLOBIN 15.2 g/dL (12.5-16.0); LYMPH# 1.5 (1.50-4.00); MEAN CELL VOLUME 86 fl (78-100); MEAN CORPUSCULAR HEMOGLOBIN 28 pg (27-31); MEAN CORPUSCULAR HGB CONC 32 g/dL (33-37); MEAN PLATELET VOLUME 10.1 fl (7.4-10.4); MONO # 0.5 (0.20-0.80); NEU # 2.7 (1.40-6.50); PLATELET COUNT 218 K/mm3 (130-400); RED BLOOD COUNT 5.44 M/mm3 (4.10-5.30); RED CELL DISTRIBUTION WIDTH 12.8 % (11.5-14.5); TROPONIN-I < 0.03 ng/mL (<0.030)
[2020-07-06 15:39] LABS: URINE APPEARANCE CLEAR; URINE BILIRUBIN NEGATIVE (NEGATIVE); URINE BLOOD NEGATIVE (NEGATIVE); URINE COLOR YELLOW; URINE GLUCOSE NEGATIVE (NEGATIVE); URINE KETONE NEGATIVE (NEGATIVE); URINE LEUKOCYTE ESTERASE NEGATIVE (NEGATIVE); URINE NITRATE NEGATIVE (NEGATIVE); URINE PROTEIN(semi-quant) NEGATIVE (NEGATIVE); URINE UROBILINOGEN NORMAL (NORMAL)
[2020-07-06] MEDS ORDERED: LISINOPRIL10 MG PO (18:04)
[2020-07-06 18:25] VITALS: BP 150/81
== END 2020-07-06 18:25 | disposition home or self-care (01) ==
LOC: ED 13:59
PROVIDERS: Family Medicine
DX: I10 Essential (primary) hypertension (principal); F41.9 Anxiety disorder, unspecified; F03.90 Unspecified dementia, unspecified severity, without behavioral disturbance, psychotic disturbance, mood disturbance, and anxiety; R27.0 Ataxia, unspecified; Z90.710 Acquired absence of both cervix and uterus; Z90.49 Acquired absence of other specified parts of digestive tract; Z90.89 Acquired absence of other organs; Z88.0 Allergy status to penicillin; Z88.8 Allergy status to other drugs, medicaments and biological substances

== ENCOUNTER → 2020-07-15 | Outpatient (CLI) | payer MEDICARE, OTHER ==
[2020-07-06 18:25] VITALS: BP 150/81
[~2020-07-15] MED LIST changes: +ALPRAZOLAM0.5 MG PO; +LISINOPRIL10 MG PO; +SERTRALINE50 MG PO
== END ==
LOC: RAD 08:30
DX: G95.89 Other specified diseases of spinal cord (principal); I67.82 Cerebral ischemia; Z86.73 Personal history of transient ischemic attack (TIA), and cerebral infarction without residual deficits
CPT/HCPCS: A9585

== ENCOUNTER 2020-08-07 10:48 | Emergency (ER) | payer MEDICARE, OTHER ==
[2020-08-07 11:06] LABS: EOS # 0.1 (0.04-0.40); EOS % 1.8 % (1.0-5.0); LYMPH# 2.3 (1.50-4.00); MEAN CELL VOLUME 87 fl (78-100); MEAN CORPUSCULAR HEMOGLOBIN 28 pg (27-31); MEAN CORPUSCULAR HGB CONC 33 g/dL (33-37); MEAN PLATELET VOLUME 10.5 fl (7.4-10.4); MONO # 0.6 (0.20-0.80); PLATELET COUNT 226 K/mm3 (130-400); RED BLOOD COUNT 4.96 M/mm3 (4.10-5.30); WHITE BLOOD COUNT 6.1 K/mm3 (4.8-10.8)
[2020-08-07 11:16] LABS: ALBUMIN 3.9 g/dL (3.4-4.8)
[2020-08-07 11:17] LABS: POTASSIUM 3.7 mmol/L (3.5-5.1); SODIUM 143 mmol/L (136-145)
[2020-08-07 11:18] LABS: CALCIUM 8.9 mg/dL (8.3-10.5)
[2020-08-07 11:19] LABS: GLUCOSE 117 mg/dL (65-105); TOTAL PROTEIN 6.4 g/dL (6.2-8.1)
[2020-08-07 11:20] LABS: CARBON DIOXIDE 23 mmol/L (23-31)
[2020-08-07 11:21] LABS: TOTAL BILIRUBIN 0.7 mg/dL (0.2-1.2)
[2020-08-07 11:24] LABS: AST-SGOT 51 U/L (5-34)
[2020-08-07 11:26] LABS: ALT/SGPT 37 U/L (0-55); LIPASE 48 U/L (8-78)
[2020-08-07 11:32] LABS: TROPONIN-I < 0.03 ng/mL (<0.030)
[2020-08-07 16:15] VITALS: BP 166/76
== END 2020-08-07 16:15 | disposition short-term general hospital (02) ==
LOC: ED 10:48
PROVIDERS: Nurse Practitioner Primary Care
DX: R07.89 Other chest pain (principal); I10 Essential (primary) hypertension; E78.5 Hyperlipidemia, unspecified; F32.9 Major depressive disorder, single episode, unspecified; Z88.0 Allergy status to penicillin; Z88.8 Allergy status to other drugs, medicaments and biological substances; Z79.899 Other long term (current) drug therapy

== ENCOUNTER → 2020-11-19 | Outpatient (CLI) | payer MEDICARE, OTHER ==
[2020-11-19 11:47] LABS: BASO # 0.07 (0.02-0.10); EOS # 0.16 (0.04-0.40); EOS % 2.7 % (1.0-5.0); HEMATOCRIT 46.2 % (37.0-47.0); HEMOGLOBIN 15.1 g/dL (12.5-16.0); LYMPH# 1.18 (1.50-4.00); MEAN CELL VOLUME 87 fl (78-100); MEAN CORPUSCULAR HEMOGLOBIN 28 pg (27-31); MEAN CORPUSCULAR HGB CONC 33 g/dL (33-37); MEAN PLATELET VOLUME 10.7 fl (7.4-10.4); PLATELET COUNT 202 K/mm3 (130-400); RED BLOOD COUNT 5.32 M/mm3 (4.10-5.30); RED CELL DISTRIBUTION WIDTH 13.5 % (11.5-14.5); WHITE BLOOD COUNT 5.8 K/mm3 (4.8-10.8)
[2020-11-19 11:57] LABS: ALBUMIN 4.3 g/dL (3.4-4.8); POTASSIUM 4.6 mmol/L (3.5-5.1)
[2020-11-19 11:58] LABS: CALCIUM 9.5 mg/dL (8.3-10.5)
[2020-11-19 12:00] LABS: TOTAL PROTEIN 7.4 g/dL (6.2-8.1)
[2020-11-19 12:02] LABS: TOTAL BILIRUBIN 0.9 mg/dL (0.2-1.2)
== END ==
LOC: LAB 11:34
PROVIDERS: Family Medicine
DX: Z00.00 Encounter for general adult medical examination without abnormal findings (principal); E78.5 Hyperlipidemia, unspecified

== ENCOUNTER → 2021-03-02 | Outpatient (CLI) | payer MEDICARE, OTHER | LOC: LAB 14:00 | DX: B85.2 Pediculosis, unspecified (principal) ==

== ENCOUNTER → 2021-06-17 | Outpatient (CLI) | payer MEDICARE, OTHER ==
[2021-06-17 15:42] LABS: BASO # 0.07 K/mm3 (0.02-0.10); EOS # 0.32 K/mm3 (0.04-0.40); EOS % 6.2 % (1.0-5.0); HEMATOCRIT 39.2 % (37.0-47.0); HEMOGLOBIN 12.2 g/dL (12.5-16.0); LYMPH# 1.02 K/mm3 (1.50-4.00); MEAN CELL VOLUME 92 fl (78-100); MEAN CORPUSCULAR HEMOGLOBIN 29 pg (27-31); MEAN CORPUSCULAR HGB CONC 31 g/dL (33-37); MONO # 0.43 K/mm3 (0.20-0.80); PLATELET COUNT 255 K/mm3 (130-400); RED BLOOD COUNT 4.28 M/mm3 (4.10-5.30); RED CELL DISTRIBUTION WIDTH 15.5 % (11.5-14.5); WHITE BLOOD COUNT 5.2 K/mm3 (4.8-10.8)
[2021-06-17 16:02] LABS: ALBUMIN 3.9 g/dL (3.4-4.8); POTASSIUM 3.8 mmol/L (3.5-5.1)
[2021-06-17 16:04] LABS: CALCIUM 9.3 mg/dL (8.3-10.5)
[2021-06-17 16:05] LABS: TOTAL PROTEIN 6.6 g/dL (6.2-8.1)
[2021-06-17 16:07] LABS: TOTAL BILIRUBIN 0.5 mg/dL (0.2-1.2)
== END ==
LOC: LAB 15:26
PROVIDERS: Family Medicine
DX: F41.9 Anxiety disorder, unspecified (principal); I10 Essential (primary) hypertension; G31.9 Degenerative disease of nervous system, unspecified; J44.9 Chronic obstructive pulmonary disease, unspecified; I25.10 Atherosclerotic heart disease of native coronary artery without angina pectoris; F32.9 Major depressive disorder, single episode, unspecified; K21.9 Gastro-esophageal reflux disease without esophagitis; M85.80 Other specified disorders of bone density and structure, unspecified site; M35.00 Sjogren syndrome, unspecified; E55.9 Vitamin D deficiency, unspecified

== ENCOUNTER → 2021-09-09 | Outpatient (CLI) | payer MEDICARE, OTHER | LOC: RAD 08:30 | DX: S72.141A Displaced intertrochanteric fracture of right femur, initial encounter for closed fracture (principal) ==

== ENCOUNTER → 2022-03-23 | Outpatient (CLI) | payer MEDICARE, OTHER ==
[2022-03-23 13:41] LABS: PH-URINE 5.5 (5.0 - 8.0); URINE APPEARANCE HAZY; URINE BILIRUBIN NEGATIVE (NEGATIVE); URINE BLOOD NEGATIVE (NEGATIVE); URINE COLOR DK YELLOW; URINE GLUCOSE NEGATIVE (NEGATIVE); URINE KETONE NEGATIVE (NEGATIVE); URINE LEUKOCYTE ESTERASE NEGATIVE (NEGATIVE); URINE NITRATE NEGATIVE (NEGATIVE); URINE PROTEIN(semi-quant) TRACE (NEGATIVE); URINE UROBILINOGEN NORMAL (NORMAL)
[2022-03-23 13:42] LABS: URINE MUCUS PRESENT (NOT PRESENT)
== END ==
LOC: LAB 10:55
PROVIDERS: Family Medicine
DX: F41.9 Anxiety disorder, unspecified (principal); I10 Essential (primary) hypertension; G31.9 Degenerative disease of nervous system, unspecified; I63.9 Cerebral infarction, unspecified; J44.9 Chronic obstructive pulmonary disease, unspecified; I25.10 Atherosclerotic heart disease of native coronary artery without angina pectoris; F32.9 Major depressive disorder, single episode, unspecified; K21.9 Gastro-esophageal reflux disease without esophagitis; E78.5 Hyperlipidemia, unspecified; K58.9 Irritable bowel syndrome, unspecified; I50.20 Unspecified systolic (congestive) heart failure; N39.46 Mixed incontinence; M85.80 Other specified disorders of bone density and structure, unspecified site; M35.00 Sjogren syndrome, unspecified; E55.9 Vitamin D deficiency, unspecified; R29.6 Repeated falls; R30.0 Dysuria

== ENCOUNTER 2022-07-13 09:18 | Emergency (ER) | payer MEDICARE, OTHER ==
[~2022-07-13] VITALS: Ht 167.6 cm; Wt 46.6 kg
[2022-07-13] MEDS ORDERED: MEMANTINE HCL10 MG PO (10:05)
[2022-07-13] MEDS ORDERED: SEPTRA DS 8001 TAB (10:06)
[2022-07-13 10:22] LABS: BASO # 0.01 K/mm3 (0.02-0.10); EOS # 0.09 K/mm3 (0.04-0.40); EOS % 2.7 % (1.0-5.0); HEMATOCRIT 45.8 % (37.0-47.0); HEMOGLOBIN 14.6 g/dL (12.5-16.0); LYMPH# 0.77 K/mm3 (1.50-4.00); MEAN CELL VOLUME 86 fl (78-100); MEAN CORPUSCULAR HEMOGLOBIN 28 pg (27-31); MEAN CORPUSCULAR HGB CONC 32 g/dL (33-37); MEAN PLATELET VOLUME 11.2 fl (7.4-10.4); MONO # 0.23 K/mm3 (0.20-0.80); NEU # 2.19 K/mm3 (1.40-6.50); PLATELET COUNT 195 K/mm3 (130-400); WHITE BLOOD COUNT 3.3 K/mm3 (4.8-10.8)
[2022-07-13 10:28] LABS: ALBUMIN 4.4 g/dL (3.4-4.8); POTASSIUM 3.9 mmol/L (3.5-5.1)
[2022-07-13 10:29] LABS: CALCIUM 9.6 mg/dL (8.3-10.5)
[2022-07-13 10:30] LABS: TOTAL PROTEIN 7.4 g/dL (6.2-8.1)
[2022-07-13 10:32] LABS: TOTAL BILIRUBIN 0.5 mg/dL (0.2-1.2)
[2022-07-13 10:42] LABS: PROTHROMBIN TIME 10.2 SECONDS (9.0-12.0)
[2022-07-13 12:41] LABS: URINE APPEARANCE HAZY; URINE BILIRUBIN NEGATIVE (NEGATIVE); URINE BLOOD TRACE (NEGATIVE); URINE COLOR YELLOW; URINE GLUCOSE NEGATIVE (NEGATIVE); URINE KETONE NEGATIVE (NEGATIVE); URINE LEUKOCYTE ESTERASE NEGATIVE (NEGATIVE); URINE NITRATE NEGATIVE (NEGATIVE); URINE PROTEIN(semi-quant) 1+ (NEGATIVE); URINE UROBILINOGEN 1 mg/dL (NORMAL); URINE WBC 0-1 /hpf (0-3)
[2022-07-13 17:15] VITALS: BP 150/68
== END 2022-07-13 17:37 | disposition home or self-care (01) ==
LOC: ED 09:18
PROVIDERS: Physician Assistant
DX: R41.82 Altered mental status, unspecified (principal); I63.9 Cerebral infarction, unspecified; G81.90 Hemiplegia, unspecified affecting unspecified side; I10 Essential (primary) hypertension; R29.702 NIHSS score 2; R00.1 Bradycardia, unspecified; F41.9 Anxiety disorder, unspecified; J01.90 Acute sinusitis, unspecified; Z79.899 Other long term (current) drug therapy; Z20.822 Contact with and (suspected) exposure to COVID-19; W19.XXXA Unspecified fall, initial encounter
CPT/HCPCS: A9575; J2060

== ENCOUNTER → 2023-03-10 | Outpatient (CLI) | payer MEDICARE, OTHER ==
[~2023-03-10] MED LIST changes: +MEMANTINE HCL10 MG PO; +SEPTRA DS 8001 TAB
[2023-03-10 12:31] LABS: URINE APPEARANCE CLEAR; URINE BILIRUBIN 1+ (NEGATIVE); URINE BLOOD NEGATIVE (NEGATIVE); URINE COLOR YELLOW; URINE GLUCOSE NEGATIVE (NEGATIVE); URINE KETONE NEGATIVE (NEGATIVE); URINE LEUKOCYTE ESTERASE NEGATIVE (NEGATIVE); URINE NITRATE NEGATIVE (NEGATIVE); URINE PROTEIN(semi-quant) 1+ (NEGATIVE); URINE UROBILINOGEN NORMAL (NORMAL)
[2023-03-10 12:32] LABS: URINE WBC 0-1 /hpf (0-3)
== END ==
LOC: LAB 12:03
PROVIDERS: Nurse Practitioner
DX: R30.0 Dysuria (principal)